=== PATIENT | female | born 1980 | race Caucasian/White ===

== ENCOUNTER 2017-07-19 13:40 | Emergency (ER) | payer MEDICAID ==
[~2017-07-19] VITALS: Ht 165.1 cm; Wt 49.9 kg
--- NOTE | 2017-07-19 13:42 | NUR ---
PT TO ER BD 10. C/O FACIAL PAIN S/P FALL X 2 DAYS AGO. ADMITS TO BEEN DRINKING. GOWNED AND PLACED ON MONITOR. NAD NOTED. AWAITING MD RUEDA.
--- NOTE | 2017-07-19 15:08 | NUR ---
JESE TONY AT BEDSIDE FOR EVAL.
[2017-07-19 15:35] LABS: APPEARANCE,URINE Cloudy (CLEAR); BILIRUBIN,URINE Negative (NEGATIVE); BLOOD, URINE Trace-lysed Ery/uL (NEGATIVE); COLOR,URINE Yellow (YELLOW); KETONES,URINE Negative (NEGATIVE); LEUKOCYTE ESTERASE ,URINE Trace (NEGATIVE); NITRITE, URINE Positive (NEGATIVE); PH,URINE 6.5 (5.0-8.0); PROTEIN,URINE 30 mg/dl (NEGATIVE); UGLUCOSE Negative (NEGATIVE); UROBILINOGEN,URINE 0.2 EU/dL (0.2)
[2017-07-19 15:39] LABS: PREGNANCY TEST URINE QUAL NEGATIVE (NEGATIVE)
[2017-07-19 15:46] LABS: BACTERIA,URINE Many /HPF (None Seen); SQUAMOUS EPITHELIAL CELL,UR Moderate /HPF (None Seen)
[2017-07-19 17:26] VITALS: BP 132/80
--- NOTE | 2017-07-19 17:26 | NUR ---
Patient discharged to home in stable condition. Written and verbal after care instructions given. Patient verbalizes understanding of instruction.IV removed. Catheter intact and site benign. Pressure and 4x4 applied to site. No bleeding noted.
== END 2017-07-19 17:28 | disposition home or self-care (01) ==
LOC: ER 13:46
DX: R51 Headache (principal); N39.0 Urinary tract infection, site not specified; F10.20 Alcohol dependence, uncomplicated; F17.200 Nicotine dependence, unspecified, uncomplicated
CPT/HCPCS: 70450; 70486; 81001; 84703; 87077; 87086; 87186; 99285; A4606; J7030; Z7610; 81000-TC